=== PATIENT | male | born 1980 | race Caucasian/White ===

== ENCOUNTER 2025-01-23 12:03 | Emergency (ER) | payer BC, SELFPAY ==
--- OUTSIDE RECORDS SUMMARY | 2025-01-19 08:48 | XMS_ITS | Encounter Summary ---
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, unspecified vessel or lesion type (HCC); Vitamin D deficiency Discharge Disposition: Home or Self Care Social History Tobacco Use Types Packs/Day Years Used Date Smoking Tobacco: Every Day Cigarettes 0.5 12 Smokeless Tobacco: Former Alcohol Use Standard Drinks/Week Comments Yes 0 (1 standard drink = 0.6 oz pure alcohol) a couple drinks every couple weeks Interpersonal Safety Domain Source: IP Abuse Scr eening Answer Date Recorded Read-Only, Retired: Physical Abuse Denies 02/20/2023 Read-Only, Retired: Verbal Abuse Denies 02/20/2023 Read-Only, Retired: Emotional abuse Denies 02/20/2023 Read-Only, Retired: Financial Abuse Denies 02/20/2023 Read-Only, Retired: Sexual abuse Denies 02/20/2023 Sex and Gender Information Value Date Recorded Sex Assigned at Not on file Legal Sex Male 2:06 PM EST Gender Identity Not on file Sexual Orientation Not on file documented as of this encounter Medications at Time of Discharge JARDIANCE 25 MG tablet Take 1 tablet by mouth daily 02/17/2022 metFORMIN (GLUCOPHAGE) 1000 MG tablet Take 1 tablet by mouth 2 times daily (with meals) 60 tablet 12/18/2019 omeprazole (PRILOSEC) 10 MG capsule Take 2 capsules by mouth daily documented as of this encounter Plan of Treatment Upcoming Encounters Date Type Department Care Team (Late st Contact Info) Description 01/24/2025 8:30 AM EDT Office Visit [facility] Chronometer Adjuster [address] [place] [address] Jeffery Martinez DO [address] [place] [address] New patient --Abnormal stress--Referred by Dr. Kraus --No prior speech therapist--LM regarding appt & labs 03/14/2025 9:00 AM EDT Office Visit [facility] Part of [address] [address] Christian More MD [address] [place] [phone] Referral from Efra with CP documented as of this encounter Procedures Procedure Name Priority Date/Time Associated Diagnosis Comments TSH REFLEX TO FT4 Routine 01/19/2025 8:5 5 AM EDT Chest pain, unspecified type Other cardiac arrhythmia Abnormal stress test Primary hypertension LIPID PANEL Routine 01/19/2025 8:55 AM EDT Encounter for lipid screening for cardiovascular disease Atherosclerosis 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, unspecified vessel or lesion type (HCC) CBC WITH AUTO DIFFERENTIAL Routine 01/19/2025 8:54 AM EDT Chest pain, unspecified type Other cardiac arrhythmia Abnormal stress test Primary hypertension VITAMIN D 25 HYDROXY Routine 01/19/2025 8:54 AM EDT Vitamin D deficiency MAGNESIUM Routine 01/19/2025 8:54 AM EDT Chest pain, unspecified type Other cardiac arrhythmia Abnormal stress test Primary hypertension documented in this encounter Results * TSH reflex to FT4 (01/19/2025 8:55 AM EDT) TSH 1.66 0.27 - 4.20 uIU/mL 01/19/2025 8:55 AM EDT [facility] Blood BLOOD SPECIMEN / Unknown 01/19/2025 8:55 AM EDT 01/19/2025 8:56 AM EDT Jeffery Martinez DO CHEMISTRY ORDERABLES Final Result [facility] [address] [phone] * (ABNORMAL) Lipid Panel (01/19/2025 8:55 AM EDT) Cholesterol, Total 273(H) 0 - 199 mg/dL 01/19/2025 8:55 AM EDT [facility] Comment: Cholesterol Guidelines: <200 Desirable 200-240 Borderline >240 Undesirable HDL 38(L) >40 mg/dL 01/19/2025 8:55 AM EDT [facility] Comment: HDL Guidelines: <40 Undesirable 40-59 Borderline >59 Desirable LDL Cholesterol 207(H) 0 - 100 mg/dL 01/19/2025 8:55 AM EDT [facility] Comment: LDL Guidelines: <100 Desirable 100-129 Near to/above Desirable 130-159 Borderline >159 Undesirable Direct (measured) LDL and calculated LDL are not interchangeable tests. Chol/HDL Ratio 7.2(H) <5.0 01/19/2025 8:55 AM EDT [facility] Triglycerides 139 <150 mg/dL 01/19/2025 8:55 AM EDT [facility] Comment: Triglyceride Guidelines: <150 Desirable 150-199 Borderline 200-499 High >499 Very high Based on AHA Guidelines for fasting triglyceride, April 2012. VLDL 28 1 - 30 mg/dL 01/19/2025 8:55 AM EDT [facility] Blood BLOOD SPECIMEN / Unknown 01/19/2025 8:55 AM EDT 01/19/2025 8:56 AM EDT Jeffery Martinez DO CHEMISTRY ORDERABLES Final Result [facility] [address] [place] [address], [facility] [phone] [facility] [employer] [facility] [place] [address], [facility] [phone] * (ABNORMAL) CBC with Auto Differential (01/19/2025 8:54 AM EDT) WBC 7.4 3.5 - 11.3 k/uL 01/19/2025 8:54 AM EDT [facility] RBC 5.96(H) 4.21 - 5.77 m/uL 01/19/2025 8:[facility] Hemoglobin 17.3(H) 13.0 - 17.0 g/dL 01/19/2025 8:54 AM [facility] Hematocrit 51.9(H) 40.7 - 50.3 % 01/19/2025 8:54 AM [facility] MCV 87.1 82.6 - 102.9 fL 01/19/2025 8:54 AM [facility] MCH 29.0 25.2 - 33.5 pg 01/19/2025 8:54 [facility] MCHC 33.3 28.4 - 34.8 g/dL 01/19/2025 8:54 AM EDT [facility] RDW 12.9 11.8 - 14.4 % 01/19/2025 8:54 AM [facility] Platelets 205 138 - 453 k/uL 01/19/2025 8:54 AM [facility] MPV 10.1 8.1 - 13.5 fL 01/19/2025 8:54 AM [facility] NRBC Automated 0.0 0.0 per 100 WBC 01/19/2025 8:54 AM EDT [facility] Neutrophils % 53 36 - 65 % 01/19/2025 8:54 AM EDT [facility] Lymphocytes % 37 24 - 43 % 01/19/2025 8:54 AM EDT [facility] Monocytes % 9 3 - 12 % 01/19/2025 8:54 AM EDT [facility] Eosinophils % 1 1 - 4 % 01/19/2025 8:54 AM EDT [facility] Basophils % 0 0 - 2 % 01/19/2025 8:54 AM EDT [facility] Immature Granulocytes % 0 0 % 01/19/2025 8:54 AM EDT [facility] Neutrophils Absolute 3.93 1.50 - 8.10 k/uL 01/19/2025 8:54 AM EDT [facility] Lymphocytes Absolute 2.74 1.10 - 3.70 k/uL 01/19/2025 8:54 AM EDT [facility] Monocytes Absolute 0.65 0.10 - 1.20 k/uL 01/19/2025 8:54 AM EDT [facility] Eosinophils Absolute 0.04 0.00 - 0.44 k/uL 01/19/2025 8:54 AM EDT [facility] Basophils Absolute <0.03 0.00 - 0.20 k/uL 01/19/2025 8:54 [facility] Immature Granulocytes Absolute 0.03 0.00 - 0.30 k/uL 01/19/2025 8:54 AM T [facility] Blood BLOOD SPECIMEN / Unknown 01/19/2025 8:54 AM EDT 01/19/2025 8:55 AM EDT Jeffery Martinez DO HEMATOLOGY ORDERABLES Gina myers Result [facility] [address] [phone] * (ABNORMAL) Vitamin D 25 Hydroxy (01/19/2025 8:54 AM EDT) Vit D, 25-Hydroxy 29.8(L) 30.0 - 100.0 ng/mL 01/19/2025 8:54 AM EDT [facility] Comment: Reference Range: Vitamin D status Range Deficiency <20 ng/mL Mild Deficiency 20-30 ng/mL Sufficiency 30-100 ng/mL Toxicity >100 ng/mL Blood BLOOD SPECIMEN / Unknown 01/19/2025 8:54 AM EDT 01/19/2025 8:55 AM EDT Jeffery Martinez CHEMISTRY ORDERABLES Final Result [facility] [address] [place] [address] [facility] [employer] [address] [place] [address] * Magnesium (01/19/2025 8:54 AM EDT) Pathologist [facility] Magnesium 2.0 1.6 - 2.6 mg/dL 01/19/2025 8:54 AM EDT [facility] Blood BLOOD SPECIMEN / Unknown 01/19/2025 8:54 AM EDT 01/19/2025 8:55 AM EDT Jeffery Martinez DO CHEMISTRY ORDERABLES Final Result [facility] [address] [place] [address] documented in this encounter Visit Diagnoses Diagnosis Chest pain, unspecified type Other cardiac arrhythmia Abnormal stress test Other nonspecific abnormal cardiovascular system function study Primary hypertension Unspecified essential hypertension Encounter for lipid screening for cardiovascular disease Atherosclerosis 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, unspecified vessel or lesion type (HCC) Vitamin D deficiency Unspecified vitamin D deficiency documented in this encounter Care Teams Vp Packaging Relationship Specialty Start Date End Date Warner Kraus MD PCP - General 10/20/14 documented as of this encounter
[2025-01-23] VITALS (50 sets, daily range): BP systolic 119–150; BP diastolic 74–103; PULSE 88–129; TEMP 37.1; O2SAT 91–99; BMI 40.3
--- NOTE | 2025-01-23 12:19 | ECG_ITS ---
The [facility] Test Date: 2025-01-23 Pat Name: VAISHALI VEE Department: Room: - Gender: Male Crane Service Technician: : 1980 Requested By: [id number] Order Number: [id number] Reading MD: YARELI JACK M.D. Measurements Intervals [place] Rate: 113 P: 58 AL: 150 QRS: 57 QRSD: 68 T: -51 QT: 302 QTc: 369 Interpretive Statements 1120 Sinus tachycardia [address] depression 4664 Twave abnormality, possible inferior ischemia 9150 abnormal ECG No previous ECG available for comparison Electronically Signed On 01-25-2025 6:56:34 EDT by YARELI JACK M.D.
--- NOTE | 2025-01-23 12:19 | XR_ITS ---
The [address] [address] Patient Name: VAISHALI VEE MRN: [id number] date: 1980 Sex: M Assigned Patient Location: ED.MAIN Current Patient Location: ED.MAIN Accession/Order Number: [id number] Exam Date: 01/23/2025 12:41 Report Date: 01/23/2025 12:41 At the request of: CAITY CUEVA MD Procedure: XR chest 1V Single view chest: CLINICAL HISTORY: chest pain COMPARISON: None FINDINGS: The heart is normal in size. The lungs are clear. The pulmonary vasculature is normal. Mediastinum and hilar regions are unremarkable. No pleural effusions are seen. Visualized bones are intact. XR/XR chest 1V IMPRESSION: NEGATIVE CHEST. Impression dictated by: Hamzah Ivan Jr., D.O. 01/23/2025 12:41 PM Dictation Location: [place] [address] Electronically authenticated by: [id number] Y Date: 01/23/2025 12:41
--- OUTSIDE RECORDS SUMMARY | 2025-01-23 12:25 | XMS_ITS | Encounter Summary ---
Author Organization [facility] Address [address] [facility], [address] [place] [address] Care Team Providers Care Yarn Rewinder Name Role Phone Warner Kraus MD Primary Care Provider [phone] Encounter Details Date Type Department Care Team (Late st Contact Info) Description 01/10/2025 Orders Only [facility] Spanish Teacher [address] [place] [address] Jeffery Martinez DO [address] [place] [address] Chest pain, unspecified type (Primary Dx); Other cardiac arrhythmia; Encounter for lipid screening for cardiovascular disease; Vitamin D deficiency; Abnormal stress test; Primary hypertension; Atherosclerosis of coronary 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 Kraus --No prior admitting counselor--LM regarding appt & labs 03/14/2025 9:00 AM EDT Office Visit [facility] Part of [address] [phone] Christian More MD [address] [place] [phone] Referral from Efra with CP documented as of this encounter Results * TSH reflex to FT4 (01/19/2025 8:55 AM EDT) Pathologist [facility] TSH 1.66 0.27 - 4.20 uIU/mL 01/19/2025 8:55 AM EDT [facility] Blood BLOOD SPECIMEN / Unknown 01/19/2025 8:55 AM EDT 01/19/2025 8:56 AM EDT Jeffery Martinez DO CHEMISTRY ORDERABLES Final Result [facility] [address] [place] [address] * (ABNORMAL) Lipid Panel (01/19/2025 8:55 AM EDT) Cholesterol, Total 273(H) 0 - 199 mg/dL 01/19/2025 8:55 AM EDT [email or web address] Comment: Cholesterol Guidelines: <200 Desirable 200-240 Borderline >240 Undesirable HDL 38(L) >40 mg/dL 01/19/2025 8:55 AM EDT [facility] Comment: HDL Guidelines: <40 Undesirable 40-59 Borderline >59 Desirable LDL Cholesterol 207(H) 0 - 100 mg/dL 01/19/2025 8:55 AM EDT [facility] Comment: LDL Guidelines: <100 Desirable 100-129 Near to/above Desirable 130-159 Borderline >159 Undesirable Direct (measured) LDL and calculated LDL are not interchangeable tests. Chol/HDL Ratio 7.2(H) <5.0 01/19/2025 8:55 AM EDT [facility] Triglycerides 139 <150 mg/dL 01/19/2025 8:55 AM EDT [facility] Comment: Triglyceride Guidelines: <150 Desirable 150-199 Borderline 200-499 High >499 Very high Based on AHA Guidelines for fasting triglyceride, April 2012. VLDL 28 1 - 30 mg/dL 01/19/2025 8:55 AM EDT [facility] Blood BLOOD SPECIMEN / Unknown 01/19/2025 8:55 AM EDT 01/19/2025 8:56 AM EDT Jeffery Martinez DO CHEMISTRY ORDERABLES Final Result Performing Organization Address City/[facility]/ZIP Co de Phone Number [facility] [address] [place] [address] [phone] * Magnesium (01/19/2025 8:54 AM EDT) Magnesium 2.0 1.6 - 2.6 mg/dL 01/19/2025 8:54 AM EDT [facility] Blood BLOOD SPECIMEN / Unknown 01/19/2025 8:54 AM EDT 01/19/2025 8:55 AM EDT Jeffery Martinez DO CHEMISTRY ORDERABLES Final Result Performing Organization Address City/[facility]/ZIP Co de Phone Number [facility] [address] [place] [address], [facility] [phone] * (ABNORMAL) Vitamin D 25 Hydroxy (01/19/2025 8:54 AM EDT) Pathologist [facility] Vit D, 25-Hydroxy 29.8(L) 30.0 - 100.0 ng/mL 01/19/2025 8:54 AM EDT [facility] Comment: Reference Range: Vitamin D status Range Deficiency <20 ng/mL Mild Deficiency 20-30 ng/mL Sufficiency 30-100 ng/mL Toxicity >100 ng/mL Blood BLOOD SPECIMEN / Unknown 01/19/2025 8:54 AM EDT 01/19/2025 8:55 AM EDT Jeffery Martinez DO CHEMISTRY ORDERABLES Final Result [facility] [address] [place], [place] [address] [phone] [phone] * (ABNORMAL) CBC with Auto Differential (01/19/2025 8:54 AM EDT) Pathologist [facility] WBC 7.4 3.5 - 11.3 k/uL 01/19/2025 8:54 AM EDT [facility] RBC 5.96(H) 4.21 - 5.77 m/uL 01/19/2025 8:54 AM EDT [facility] Hemoglobin 17.3(H) 13.0 - 17.0 g/dL 01/19/2025 8:54 AM EDT [facility] Hematocrit 51.9(H) 40.7 - 50.3 % 01/19/2025 8:54 AM EDT [facility] MCV 87.1 82.6 - 102.9 fL 01/19/2025 8:54 AM EDT [facility] MCH 29.0 25.2 - 33.5 pg 01/19/2025 8:54 AM EDT [facility] MCHC 33.3 28.4 - 34.8 g/dL 01/19/2025 8:54 AM EDT [facility] RDW 12.9 11.8 - 14.4 % 01/19/2025 8:54 AM [facility] Platelets 205 138 - 453 k/uL 01/19/2025 8:54 AM [facility] MPV 10.1 8.1 - 13.5 fL 01/19/2025 8:54 AM [facility] NRBC Automated 0.0 0.0 per 100 WBC 01/19/2025 8:54 AM [facility] Neutrophils % 53 36 - 65 % 01/19/2025 8:54 AM [facility] Lymphocytes % 37 24 - 43 % 01/19/2025 8:54 AM [facility] Monocytes % 9 3 - 12 % 01/19/2025 8:54 AM [facility] Eosinophils % 1 1 - 4 % 01/19/2025 8:54 AM [facility] Basophils % 0 0 - 2 % 01/19/2025 8:54 AM [facility] Immature Granulocytes % 0 0 % 01/19/2025 8:54 AM [facility] Neutrophils Absolute 3.93 1.50 - 8.10 k/uL 01/19/2025 8:54 AM [facility] Lymphocytes Absolute 2.74 1.10 - 3.70 k/uL 01/19/2025 8:54 AM [facility] Monocytes Absolute 0.65 0.10 - 1.20 k/uL 01/19/2025 8:54 AM [facility] Eosinophils Absolute 0.04 0.00 - 0.44 k/uL 01/19/2025 8:54 AM [facility] Basophils Absolute <0.03 0.00 - 0.20 k/uL 01/19/2025 8:54 AM [facility] Immature Granulocytes Absolute 0.03 0.00 - 0.30 k/uL 01/19/2025 8:54 AM [facility] Blood BLOOD SPECIMEN / Unknown 01/19/2025 8:54 AM EDT 01/19/2025 8:55 AM EDT us Jeffery Martinez DO HEMATOLOGY ORDERABLES Gina myers Result [facility] [address] [phone] documented in this encounter Visit Diagnoses Diagnosis Chest pain, unspecified type- Primary Other cardiac arrhythmia Encounter for lipid screening for cardiovascular disease Vitamin D deficiency Unspecified vitamin D deficiency Abnormal stress test Other nonspecific abnormal cardiovascular system function study Primary hypertension Unspecified essential hypertension Atherosclerosis of coronary artery of [place] heart with unstable angina pectoris, unspecified vessel or lesion type (HCC) documented in this encounter Care Teams Yarn Rewinder Relationship Specialty Start Date End Date Warner Kraus MD PCP - General 10/20/14 documented as of this encounter
--- OUTSIDE RECORDS SUMMARY | 2025-01-23 12:25 | XMS_ITS | Clinical Summary ---
Author Organization [employer] Address [id number] [address] [place] [address] Care Team Providers Care Car Repairer Helper Name Role Phone Warner Kraus MD Primary Care Provider [phone] Encounters Date Type Department Care Team Description 11/09/2024 Travel from Last 3 Months Social History Tobacco Use Types Packs/Day Years Used Date Smoking Tobacco: Never Assessed Childcare Answer Date Recorded Childcare Unknown 05/16/2020 Employment Answer Date Recorded Employment Unknown 05/16/2020 Purpose - Life Answer Date Recorded Purpose and direction in life Unknown Sex and Gender Information Value Date Recorded Sex Assigned at Not on file Legal Sex Male 10:31 PM EDT Gender Identity Not on file Sexual Orientation Not on file Plan of Treatment Health Maintenance Due Date Last Done Comments Depression Screening 1991 Tobacco Screening 1991 Adult BMI Screening 1997 DTaP,Tdap and Td Vaccines (1 - Tdap) 1998 Influenza Vaccine 03/06/2025 Medical Devices Not on file Procedures Procedure Name Priority Date/Time Associated Diagnosis Comments COMPREHENSIVE METABOLIC PANEL Routine 11/09/2024 8:15 AM EDT Chest pain, unspecified C-REACTIVE PROTEIN Routine 11/09/2024 8: 15 AM EDT Chest pain, unspecified TROPONIN I, HIGH SENSITIVITY Routine 11/09/2024 8:15 AM EDT Chest pain, unspecified from Last 3 Months Results * Troponin I, High Sensitivity (11/09/2024 8:15 AM EDT) [facility] TROPONIN I, HIGH SENSITIVITY 4 <21 ng/L 11/09/2024 5:12 PM EDT [facility] Blood Venous blood / Unknown Venipuncture / Unknown 11/09/2024 8:15 AM EDT 11/09/2024 8:15 AM EDT [facility] B[facility]AB[facility] Final R esult [facility] [address] [place] [address], [place] [phone] * C-reactive protein (11/09/2024 8:15 AM EDT) [facility] C REACTIVE PROTEIN 0.5 <=0.7 mg/dL 11/09/2024 5:13 PM EDT [facility] Blood Venous blood / Unknown Venipuncture / Unknown 11/09/2024 8:15 AM EDT 11/09/2024 8:15 AM EDT [facility] BLOOD ORDERABLES Final R esult [facility] [address] [place] [address], [place] [phone] * (ABNORMAL) Comprehensive metabolic panel (11/09/2024 8:15 AM EDT) [facility] SODIUM 141 134 - 146 mmol/L 11/09/2024 5:13 PM EDT [facility] POTASSIUM 3.8 3.5 - 5.0 mmol/L 11/09/2024 5:13 PM EDT [facility] CHLORIDE 102 98 - 109 mmol/L 11/09/2024 5:13 PM EDT [facility] CARBON DIOXIDE 28 22 - 32 mmol/L 11/09/2024 5:13 PM EDT [facility] ANION GAP 11 5 - 15 mmol/L 11/09/2024 5:13 PM EDT [facility] BLOOD UREA NITROGEN 18 5 - 23 mg/dL 11/09/2024 5:13 PM EDT [facility] CREATININE 0.97 0.60 - 1.30 mg/dL 11/09/2024 5:13 PM EDT [facility] Comment:METHOD TRACEABLE TO IDPR STANDARD GLUCOSE 130(H) 65 - 99 mg/dL 11/09/2024 5:13 PM EDT [facility] CALCIUM 9.2 8.5 - 10.5 mg/dL 11/09/2024 5:13 PM EDT [facility] TOTAL PROTEIN 7.0 6.0 - 8.0 g/dL 11/09/2024 5:13 PM EDT [facility] ALBUMIN 4.5 3.2 - 5.3 g/dL 11/09/2024 5:13 PM EDT [facility] ALKALINE PHOSPHATASE 61 39 - 130 U/L 11/09/2024 5:13 PM EDT [facility] AST 18 <=41 U/L 11/09/2024 5:13 PM EDT [facility] ALT 25 <=40 U/L 11/09/2024 5:13 PM EDT [facility] BILIRUBIN,TOTAL 0.4 0.3 - 1.2 mg/dL 11/09/2024 5:13 PM EDT [facility] EGFR Non-Race Dependent >90 >=60 ml/min/1.7 3sq.m 11/09/2024 5:13 PM EDT [facility] Comment: Reported eGFR is based on the CKD-EPI 2020 equation that does not use a race coefficient. Blood Venous blood / Unknown Venipuncture / Unknown 11/09/2024 8:15 AM EDT 11/09/2024 8:15 AM EDT us Anshul Magdaleno EMPLOYEE HEALTH NURSE-POSTAL SERVICE MAIL PROCESSOR LAB BLOOD ORDERABLES Final R esult [facility] [address] [place] [address], [place] [phone] from Last 3 Months Insurance [employer] Care Teams Car Repairer Helper Relationship Specialty Start Date End Date Warner Kraus MD [address] [place] [place] [id number] PCP - General Family Medicine 05/19/24
--- OUTSIDE RECORDS SUMMARY | 2025-01-23 12:25 | XMS_ITS | Encounter Summary ---
Author Organization [facility] Address [address] [facility], [address] [place] [address] Care Team Providers Care Regulatory Affairs Portfolio Leader Name Role Phone Warner Kraus MD Primary Care Provider [phone] Reason for Visit * Reason Comments Medication Refill Encounter Details Date Type Department Care Team (Late st Contact Info) Description 01/10/2020 Refill [facility] [address] [place] [address] Won Dill MD [address] [place] [address] Medication Refill Social History Tobacco Use Types Packs/Day Years Used Date Smoking Tobacco: Former Cigarettes 0.8 12 Smokeless Tobacco: Former Alcohol Use Standard Drinks/Week Comments Yes 0 (1 standard drink = 0.6 oz pure alcohol) a couple drinks every couple weeks Sex and Gender Information Value Date Recorded Sex Assigned at Not on file Legal Sex Male 2:06 PM EST Gender Identity Not on file Sexual Orientation Not on file COVID-19 Exposure Response Date Recorded In the last month, have you been in contact with someone who was confirmed or suspected to have Coronavirus / COVID-19? No / Unsure 12/17/2019 6:48 AM EDT documented as of this encounter Plan of Treatment Upcoming Encounters Date Type Department Care Team (Late st Contact Info) Description 01/24/2025 8:30 AM EDT Office Visit [facility] Manager Risk Management [address] [place] [phone] Jeffery Martinez DO [address] [place] [address] New patient --Abnormal stress--Referred by Dr. Kraus --No prior bobbin coil winder--LM regarding appt & labs 03/14/2025 9:00 AM EDT Office Visit [facility] Part of [address] [phone] Christian More MD [address] [place] [phone] Referral from Efra with CP documented as of this encounter Visit Diagnoses Not on filedocumented in this encounter Care Teams Regulatory Affairs Portfolio Leader Relationship Specialty Start Date End Date Warner Kraus MD PCP - General 10/20/14 documented as of this encounter
--- OUTSIDE RECORDS SUMMARY | 2025-01-23 12:25 | XMS_ITS | Clinical Summary ---
Author Organization [facility] Address [address], [address] [place] [address] Care Team Providers Care Field Examiner Name Role Phone Warner Kraus MD Primary Care Provider [phone] Allergies Active Allergy Reactions Criticality Noted Date Comments Fluocinolone 04/21/2013 Burning at IV site Medications omeprazole (PRILOSEC) 10 MG capsule Take 2 capsules by mouth daily Active metFORMIN (GLUCOPHAGE) 1000 MG tablet Take 1 tablet by mouth 2 times daily (with meals) 60 tablet 0 Active Additional Information Patient taking differently:1,000 mg OralDAILY WITH BREAKFAST, Reported on 02/12/2023 JARDIANCE 25 MG tablet Take 1 tablet by mouth daily 2 Active Active Problems Problem Noted Date Diagnosed Date Diabetes mellitus, type 2 12/18/2019 Morbid obesity 12/18/2019 Intractable nausea and vomiting 12/17/2019 Encounters Date Type Department Care Team Description 01/19/2025 8:48 AM EDT - 01/19/2025 11:59 PM EDT Hospital Encounter [facility] [address] [place] [address] Chest pain, unspecified type; Other cardiac arrhythmia; Abnormal stress test; Primary hypertension; Encounter for lipid screening for cardiovascular disease; Atherosclerosis of coronary artery of [place] heart with unstable angina pectoris, unspecified vessel or lesion type (HCC); Vitamin D deficiency Discharge Disposition: Home or Self Care 01/10/2025 Orders Only [facility] Granulator [place] [phone] Jeffery Martinez DO Chest pain, unspecified type (Primary Dx); Other cardiac arrhythmia; Encounter for lipid screening for cardiovascular disease; Vitamin D deficiency; Abnormal stress test; Primary hypertension; Atherosclerosis of coronary artery of [place] heart with unstable angina pectoris, unspecified vessel or lesion type ([facility]) 12/22/2024 9:17 AM EDT - 12/24/2024 11:59 PM EDT Hospital Encounter [facility] [address] [place] [id number] Discharge Disposition: Home or Self Care 12/22/2024 9:04 AM EDT - 12/24/2024 11:59 PM EDT Hospital Encounter [facility] Non-Invasive Cardiology [address] [place] [address] Discharge Disposition: Home or Self Care 12/21/2024 2:02 PM EDT - 12/23/2024 11:59 PM EDT Hospital Encounter [address] [address] Discharge Disposition: Home or Self Care 12/21/2024 1:30 PM EDT - 12/23/2024 11:59 PM EDT Hospital Encounter [address] [address] Chest pain, unspecified type Discharge Disposition: Home or Self Care 12/21/2024 1:02 PM EDT - 12/23/2024 11:59 PM EDT Hospital Encounter [facility] Non-Invasive Cardiology [address] [place] [address] Mitral valve disorder Discharge Disposition: Home or Self Care 11/30/2024 Transcribe Orders [facility] [address] [place], [place] [id number] Anshul Magdaleno, BODY DESIGNER - FACILITIES MAINTENANCE ASSISTANT Mitral valve disorder (Primary Dx); Chest pain, unspecified type 11/23/[address] [facility] Part of [address] [phone] Romana Vazquez MA from Last 3 Months Social History Tobacco Use Types Packs/Day Years Used Date Smoking Tobacco: Every Day Cigarettes 0.5 12 Smokeless Tobacco: Former Tobacco Cessation:Ready to Q uit: Not Asked; Counseling Given: Not Answered Alcohol Use Standard Drinks/Week Comments Yes 0 [...] on file Sexual Orientation Not on file Last Filed Vital Signs Vital Sign Reading Time Taken Comments Blood Pressure 129/86 12/21/2024 2:29 PM EDT Pulse 86 02/20/2023 2:15 PM EDT Temperature 36.4 C (97.5 F) 02/20/2023 1:04 PM EDT Respiratory Rate 12 02/20/2023 2:15 PM EDT Oxygen Saturation 95% 02/20/2023 2:15 PM EDT Inhaled Oxygen Concentration - - Weight 117.9 kg (259 lb 14.8 oz) 12/21/2024 2:29 PM EDT Height 172.7 cm (5' 7.99 ) 12/21/2024 2:29 PM ED T Body Mass Index 39.53 12/21/2024 2:29 PM EDT Plan of Treatment Upcoming Encounters Date Type Department Care Team (Late st Contact Info) Description 01/24/2025 8:30 AM EDT Office Visit [facility] Granulator Tender [address] [place] [phone] Jeffery Martinez DO [address] [place] [address] New patient --Abnormal stress--Referred by Dr. Kraus --No prior dairy tester--LM regarding appt & labs 03/14/2025 9:00 AM EDT Office Visit [facility] CARD[facility] Part of [address] [phone] Christian More MD [address] [place] [phone] Referral from [facility] with Health Maintenance Due Date Last Done Comments Diabetic foot exam 1989 Lipids 1989 01/19/2025 Depression Screen 1991 HIV screen 1994 Diabetic Alb to Cr ratio (uACR) test 1997 Diabetic retinal exam 1997 Hepatitis C screen 1997 DTaP/Tdap/Td vaccine (1 - Tdap) 1998 Hepatitis B vaccine (1 of 3 - 19+ 3-dose series) 1998 Pneumococcal 0-49 years Vaccine (1 of 2 - PCV) 1998 A1C test (Diabetic or Prediabetic) 12/16/2020 12/17/2019 GFR test (Diabetes, CKD 3-4, OR last GFR 15-59) 02/13/2024 02/12/2023, 12/18/2019, 12/17/2019 COVID-19 Vaccine (3 - 2023-2 5 season) 2024 04/20/2021, 03/16/2021 Colonoscopy 2024 Colorectal Cancer Screen 2024 FIT/FOBT: Average risk 2024 Fecal-DNA (Cologuard): [place] ge risk 2024 Sigmoidoscopy/CT colonography 2024 Flu vaccine (#1) 02/03/2025 05/24/2009 HPV vaccine Aged Out No longer eligi ble based on patient's age to complete this topic Hepatitis A vaccine Aged Out No longe r eligible based on patient's age to complete this topic Hib vaccine Aged Out No longer eligi ble based on patient's age to complete this topic Meningococcal (ACWY) vaccine Aged Out No longer eligible based on patient's age to complete this topic Meningococcal B vaccine Aged Out No l onger eligible based on patient's age to complete this topic Polio vaccine Aged Out No longer elig ible based on patient's age to complete this topic Medical Devices Implanted Type Area Ore Crusher Device Identifier Shelf Expiration Date Model / Serial / Lot Kit Impl Dst Biceps Bttn Insrt W/ No2 Fiberloop Sut - [id number] Implanted:Qty: 1 on 02/20/2023 by Mayank Barba MD at [facility] Right: Arm [employer] 12/03/2024 [id number] / / [id number] Procedures Procedure Name Priority Date/Time Associated Diagnosis Comments TSH REFLEX TO FT4 Routine 01/19/2025 8:5 5 AM EDT Chest pain, unspecified type Other cardiac arrhythmia Abnormal stress test Primary hypertension LIPID PANEL Routine 01/19/2025 8:55 AM EDT Encounter for lipid screening for cardiovascular disease Atherosclerosis of coronary artery of [place] heart with unstable angina pectoris, unspecified vessel or lesion type (HCC) CBC WITH AUTO DIFFERENTIAL Routine 01/19/2025 8:54 AM EDT Chest pain, unspecified type Other cardiac arrhythmia Abnormal stress test Primary hypertension VITAMIN D 25 HYDROXY Routine 01/19/2025 8:54 AM EDT Vitamin D deficiency MAGNESIUM Routine 01/19/2025 8:54 AM EDT Chest pain, unspecified type Other cardiac arrhythmia Abnormal stress test Primary hypertension NM LEXISCAN STRESS TEST W/ MYOCARDIAL PERFUSION Routine 12/22/2024 11:00 AM EDT Chest pain, unspecified type ECHO (TTE) COMPLETE Routine 12/21/2024 2 :30 PM EDT Mitral valve disorder BASIC METABOLIC PANEL Routine 02/12/2023 7:23 AM EDT HEMOGLOBIN A1C Routine 12/17/2019 1:30 AM EDT from Last 3 Months or Most Recently Relevant to Health Maintenance Results * TSH reflex to FT4 (01/19/2025 8:55 AM EDT) TSH 1.66 0.27 - 4.20 uIU/mL 01/19/2025 8:55 AM EDT [facility] Blood BLOOD SPECIMEN / Unknown 01/19/2025 8:55 AM EDT 01/19/2025 8:56 AM EDT Jeffery Martinez DO CHEMISTRY ORDERABLES Final Result [facility] [address] [place] [address], [facility] [phone] * (ABNORMAL) Lipid Panel (01/19/2025 8:55 AM EDT) Cholesterol, Total 273(H) 0 - 199 mg/dL 01/19/2025 8:55 AM EDT [facility] Comment: Cholesterol Guidelines: <200 Desirable 200-240 Borderline >240 Undesirable HDL 38(L) >40 mg/dL 01/19/2025 8:55 AM EDT [facility] Comment: HDL Guidelines: <40 Undesirable 40-59 Borderline >59 Desirable LDL Cholesterol 207(H) 0 - 100 mg/dL 01/19/2025 8:55 AM EDT [facility] Comment: LDL Guidelines: <100 Desirable 100-129 Near to/above Desirable 130-159 Borderline >159 Undesirable Direct (measured) LDL and calculated LDL are not interchangeable tests. Chol/HDL Ratio 7.2(H) <5.0 01/19/2025 8:55 AM EDT [facility] Triglycerides 139 <150 mg/dL 01/19/2025 8:55 AM EDT [facility] Comment: Triglyceride Guidelines: <150 Desirable 150-199 Borderline 200-499 High >499 Very high Based on AHA Guidelines for fasting triglyceride, April 2012. VLDL 28 1 - 30 mg/dL 01/19/2025 8:55 AM EDT [facility] Blood BLOOD SPECIMEN / Unknown 01/19/2025 8:55 AM EDT 01/19/2025 8:56 AM EDT Jeffery Martinez DO CHEMISTRY ORDERABLES Final Result Performing Organization Address [facility]/ZIP Co de Phone Number [facility] [address] [place] [address], [facility] [phone] [facility] [address] [place], [place] [phone] [place] [address] * (ABNORMAL) CBC with Auto Differential (01/19/2025 8:54 AM EDT) [facility] Signature WBC 7.4 3.5 - 11.3 k/uL 01/19/2025 8:54 AM [facility] RBC 5.96(H) 4.21 - 5.77 m/uL 01/19/2025 8:54 AM [facility] Hemoglobin 17.3(H) 13.0 - 17.0 g/dL 01/19/2025 8:54 AM [facility] Hematocrit 51.9(H) 40.7 - 50.3 % 01/19/2025 8:54 AM [facility] MCV 87.1 82.6 - 102.9 fL 01/19/2025 8:54 AM [facility] MCH 29.0 25.2 - 33.5 pg 01/19/2025 8:54 AM [facility] MCHC 33.3 28.4 - 34.8 g/dL 01/19/2025 8:54 AM [facility] RDW 12.9 11.8 - 14.4 % 01/19/2025 8:54 AM [facility] Platelets 205 138 - 453 k/uL 01/19/2025 8:54 AM [facility] MPV 10.1 8.1 - 13.5 fL 01/19/2025 8:54 AM [facility] NRBC Automated 0.0 0.0 per 100 WBC 01/19/2025 8:54 AM [facility] Neutrophils % 53 36 - 65 % 01/19/2025 8:54 AM [facility] Lymphocytes % 37 24 - 43 % 01/19/2025 8:54 AM [facility] Monocytes % 9 3 - 12 % 01/19/2025 8:54 AM [facility] Eosinophils % 1 1 - 4 % 01/19/2025 8:54 AM [facility] Basophils % 0 0 - 2 % 01/19/2025 8:54 AM EDT [facility] Immature Granulocytes % 0 0 % 01/19/2025 8:54 AM EDT [facility] Neutrophils Absolute 3.93 1.50 - 8.10 k/uL 01/19/2025 8:54 AM EDT [facility] Lymphocytes Absolute 2.74 1.10 - 3.70 k/uL 01/19/2025 8:54 AM EDT [facility] Monocytes Absolute 0.65 0.10 - 1.20 k/uL 01/19/2025 8:54 AM EDT [facility] Eosinophils Absolute 0.04 0.00 - 0.44 k/uL 01/19/2025 8:54 AM EDT [facility] Basophils Absolute <0.03 0.00 - 0.20 k/uL 01/19/2025 8:54 AM EDT [facility] Immature Granulocytes Absolute 0.03 0.00 - 0.30 k/uL 01/19/2025 8:54 AM EDT [facility] Blood BLOOD SPECIMEN / Unknown 01/19/2025 8:54 AM EDT 01/19/2025 8:55 AM EDT Jeffery Martinez DO HEMATOLOGY ORDERABLES Gina l Result [facility] [address] [place] [address] * (ABNORMAL) Vitamin D 25 Hydroxy (01/19/2025 8:54 AM EDT) Vit D, 25-Hydroxy 29.8(L) 30.0 - 100.0 ng/mL 01/19/2025 8:54 AM EDT [facility] Comment: Reference Range: Vitamin D status Range Deficiency <20 ng/mL Mild Deficiency 20-30 ng/mL Sufficiency 30-100 ng/mL Toxicity >100 ng/mL Blood BLOOD SPECIMEN / Unknown 01/19/2025 8:54 AM EDT 01/19/2025 8:55 AM EDT Jeffery Martinez DO CHEMISTRY ORDERABLES Final Result [facility] [address] [phone] [facility] [address] [place], [place] [id number] [phone] * Magnesium (01/19/2025 8:54 AM EDT) Pathologist [facility] Magnesium 2.0 1.6 - 2.6 mg/dL 01/19/2025 8:54 AM EDT [facility] Blood BLOOD SPECIMEN / Unknown 01/19/2025 8:54 AM EDT 01/19/2025 8:55 AM EDT us Jeffery Martinez DO CHEMISTRY ORDERABLES Final Result Performing Organization Address [facility]/ZIP Co de Phone Number [facility] [address] [phone] * NM LEXISCAN STRESS TEST W/ MYOCARDIAL PERFUSION (12/22/2024 11:00 AM EDT) Pathologist [facility] Stress Target HR 175 bpm [facility] CV [facility] STRESS Baseline Systolic BP 146 mmHg [facility] CV [facility]ACS STRESS Baseline Diastolic BP 80 mmHg [facility] CV [facility] STRESS Stress Systolic BP 146 mmHg [facility] CV RPACS STRESS Stress Diastolic BP 80 mmHg [facility] CV [facility]ACS STRESS Baseline HR 79 BPM [facility] CV [facility] STRESS Stress Peak HR 141 BPM [facility] STRESS Stress Estimated Workload 1.3 METS [facility] STRESS Stress Rate Pressure Product 20,586 BPM*mmHg [facility] CV [facility] STRESS Stress Percent HR Achieved 81 % [facility] STRESS TID 1.43 [facility] CV RP ACS STRESS Nuc Stress EF 61 % [facility] C V RPACS STRESS Anatomical Region Laterality Modality Cardiac Diagnost ic 12/22/2024 9:17 AM EDT Narrative 12/22/2024 7:56 PM EDT Stress Combined Conclusion: The study is positive for myocardial ischemia. Findings suggest a moderate risk of cardiac events. Stress Function: Left ventricular function post-stress is normal. Post-stress ejection fraction is 61%. The stress end diastolic cavity size is normal. Perfusion Comments: Prone images were obtained. Prone imaging confirms a true perfusion defect instead of soft tissue attenuation. LV perfusion is abnormal. There is evidence of inducible ischemia. Perfusion Defect: There is a moderate severity left ventricular stress perfusion defect that is medium in size present in the inferolateral and anterolateral segment(s). This defect was visualized during the stress phase of imaging. The defect appears to be ischemia. The possibility of artifact cannot be excluded. Perfusion Conclusion: There is evidence of transient ischemic dilation (TID). TID was appreciated visually and quantitatively. TID ratio is 1.43. Stress Test: A pharmacological stress test was performed using regadenoson (Lexiscan). Low level exercise was used during the pharmacological stress test. The patient reported diaphoresis, dyspnea and chest tightness during the stress test. The patient reached the end of the protocol. Blood pressure demonstrated a normal response and heart rate demonstrated a normal response to stress. Resting ECG: The ECG shows sinus rhythm. down sloping ST depression in the inferolateral leads (II, III, aVF, V5 and V6) was noted. Stress ECG: The stress ECG was positive for ischemia. Abnormal myocardial perfusion study, there is inferolateral and anterolateral defect most consistent with ischemia but cannot rule out an artifact. Gated SPECT showed normal left ventricular cavity size and wall motion. Calculated ejection fraction 61%. There is evidence of stress-induced transient ischemic dilatation of the left ventricle of 1.43, transient ischemic dilatation of the left ventricle is associated with uncontrolled hypertension, severe three-vessel disease or severe left main coronary artery disease. Overall, these results are most consistent with a intermediate to high risk for cardiac events. Additional testing including cardiac catheterization may be indicated. Resting ECG The ECG shows sinus rhythm. down sloping ST depression in the inferolateral leads (II, III, aVF, V5 and V6) was noted. Stress Findings A pharmacological stress test was performed using regadenoson (Lexiscan). Low level exercise was used during the pharmacological stress test. The patient reported diaphoresis, dyspnea and chest tightness during the stress test. The patient reached the end of the protocol. Blood pressure demonstrated a normal response and heart rate demonstrated a normal response to stress. Stress ECG There were no arrhythmias during stress. There were no noted arrhythmias during recovery. The stress ECG was positive for ischemia. Nuclear Study Quality Nuclear Cardiac SPECT rest then gated stress with tomographic imaging/tomography utilized for the myocardial perfusion procedure. Lexiscan was used as the stressing method and agent. (Lexiscan given via a 10 - 20 sec injection). Two day myocardial perfusion study (12/21/2024 and 12/22/2024). This Single Photon Emission Computer Tomography (SPECT) study utilized tomographic imaging/tomography for the tomographic myocardial perfusion imaging performed during this study. Perfusion Comments Prone images were obtained. Prone imaging confirms a true perfusion defect instead of soft tissue attenuation. LV perfusion is abnormal. There is evidence of inducible ischemia. Perfusion Defect There is a moderate severity left ventricular stress perfusion defect that is medium in size present in the inferolateral and anterolateral segment(s). This defect was visualized during the stress phase of imaging. The defect appears to be ischemia. The possibility of artifact cannot be excluded. Perfusion Defect Conclusion There is evidence of transient ischemic dilation (TID). TID was appreciated visually and quantitatively. TID ratio is 1.43. Stress Function Comments Left ventricular function post-stress is normal. Post-stress ejection fraction is 61%. The stress end diastolic cavity size is normal. Stress Combined Conclusion The study is positive for myocardial ischemia. Findings suggest a moderate risk of cardiac events. us Anshul Magdaleno BODY DESIGNER - FACILITIES MAINTENANCE ASSISTANT CV STRESS ORDERABLES Gina myers Result * (ABNORMAL) ECHO (TTE) COMPLETE (12/21/2024 2:30 PM EDT) Body Surface Area 2.38 m2 [facility] CPACS EF BP 60 55 - 100 % [facility] Fractional Shortening 2D 28 28 - 44 % [facility] LVIDd 3.9(A) 4.2 - 5.9 cm [facility] CV CPACS LVIDd Index 1.71 cm/m2 [facility] CV [facility]ACS LVIDs 2.8 cm [facility] CV [facility]ACS LVIDs Index 1.23 cm/m2 [facility] CV CPACS IVSd 0.9 0.6 - 1.0 cm [facility]ACS LVPWd 0.9 0.6 - 1.0 cm [facility] LV RWT Ratio 0.46 [facility] LV Mass 2D 105.3 88 - 224 g [facility] CV CPACS LV Mass 2D Index 46.2(A) 49 - 115 g/m2 [facility] CV CPACS LA Volume A-L A4C 38 18 - 58 mL [facility] CV CPACS LA Volume Index A-L A2C 17 16 - 34 mL/m2 [facility] CV CPACS LA Volume A-L A4C 34 18 - 58 mL [facility] CV CPACS LA Volume Index A-L A4C 15(A) 16 - 34 mL/m2 [facility] CV CPACS TAPSE 2.5 >=1.7 cm [facility] CV CPACS Est. RA Pressure 3 mmHg [facility] CV CPACS Aortic Root 1.7 cm [facility] CV CPACS Ao Root Index 0.75 cm/m2 [facility] CV CPACS Aortic Sinus Valsalva 2.7 cm BS CV CPACS Aortic Sinus Valsalva Index 1.18 cm/m2 BS CV CPACS Ascending Aorta 3.5 cm BS CV CPACS Ascending Aorta Index 1.54 cm/m2 [facility] CV [facility]ACS AV Mean Gradient 5 mmHg [facility] CV CPACS Sinotubular Junction 2.1 cm [facility] CV CPACS TV Max Velocity 2.0 m/s BS CV CPACS EF Physician 60 % BS CV CPACS Anatomical Region Laterality Modality Echocardiography Narrative 12/21/2024 3:41 PM EDT Left Ventricle: Normal left ventricular systolic function with a visually estimated EF of 55 - 60%. Normal wall thickness. Normal wall motion. Grade I diastolic dysfunction with normal left atrial pressure. Aortic Valve: Thickened cusps. Calcified cusps. Sclerosis of the aortic valve cusps. Mitral Valve: Mild regurgitation. Tricuspid Valve: Trace regurgitation. RVSP 19mmHg Image quality is adequate. No previous studies were available for comparison. Left Ventricle Normal left ventricular systolic function with a visually estimated EF of 55 - 60%. Normal wall thickness. Normal wall motion. Grade I diastolic dysfunction with normal LAP. Right Ventricle Right ventricle size is normal. Normal systolic function. Left Atrium Left atrium size is normal. Right Atrium Right atrium size is normal. IVC/SVC IVC diameter is normal or and decreases greater than 50% during inspiration; therefore the estimated right atrial pressure is normal (~3 mmHg). IVC size is normal. Mitral Valve Valve structure is normal. Mild regurgitation. No stenosis noted. Tricuspid Valve Valve structure is normal. Trace regurgitation. RVSP 19mmHg No stenosis noted. Aortic Valve Thickened cusps. Calcified cusps. Sclerosis of the aortic valve cusps. No regurgitation. No stenosis. Pulmonic Valve The pulmonic valve visualization is suboptimal but appears to be functioning normally. Physiologically normal regurgitation. No stenosis noted. Ascending Aorta Normal sized aortic root. Mildly dilated ascending aorta. Ao ascending diameter is 3.5 cm. Aortic Root is 1.7 cm. Aortic Sinus Valsalva is 2.7 cm. Ascending Aorta is 3.5 cm. Pericardium No pericardial effusion. Study Details Image quality: adequate. No contrast was given. us Anshul Magdaleno BODY DESIGNER - FACILITIES MAINTENANCE ASSISTANT CV ECHO ORDERABLES Final Result * (ABNORMAL) Basic Metabolic Panel (02/12/2023 7:23 AM EDT) Glucose 139(H) 70 - 99 mg/dL 02/12/2023 7:23 AM [facility] BUN 14 6 - 20 mg/dL 02/12/2023 7:23 AM [facility] Creatinine 0.8 0.7 - 1.2 mg/dL 02/12/2023 7:23 AM [facility] Est, Glom Filt Rate >60 >60 mL/min/1.7 3m2 02/12/2023 7:23 AM [facility] Comment: These results are not intended for use in patients <18 years of age. eGFR results are calculated without a race factor using the 2020 CKD-EPI equation. Careful clinical correlation is recommended, particularly when comparing to results calculated using previous equations. The CKD-EPI equation is less accurate in patients with extremes of muscle mass, extra-renal metabolism of creatine, excessive creatine ingestion, or following therapy that affects renal tubular secretion. BUN/Creatinine Ratio 18 9 - 20 02/12/2023 7:23 AM [facility] Calcium 9.3 8.6 - 10.4 mg/dL 02/12/2023 7:23 AM [facility] Sodium 139 135 - 144 mmol/L 02/12/2023 7:23 AM EDT [facility] Potassium 4.0 3.7 - 5.3 mmol/L 02/12/2023 7:23 AM EDT [facility] Chloride 101 98 - 107 mmol/L 02/12/2023 7:23 AM EDT [facility] CO2 27 20 - 31 mmol/L 02/12/2023 7:23 AM EDT [facility] Anion Gap 11 9 - 17 mmol/L 02/12/2023 7:23 AM EDT [facility] 02/12/2023 7:23 AM EDT 02/12/2023 7:24 AM EDT us Mayank Barba MD CHEMISTRY ORDERABLES Final Result Performing Organization Address [facility]/ZIP Co de Phone Number [facility] [address] [phone] * (ABNORMAL) Hemoglobin A1c (12/17/2019 1:30 AM EDT) Hemoglobin A1C 9.1(H) 4.8 - 5.9 % 12/17/2019 1:30 AM EDT [facility] Estimated Avg Glucose 214 mg/dL 12/17/2019 1:30 AM EDT [facility] Comment: The ADA and AACC recommend providing the estimated average glucose result to permit better patient understanding of their HBA1c result. 12/17/2019 1:30 AM EDT 12/17/2019 10:01 AM EDT us Won Dill MD CHEMISTRY ORDERABLES Gina l Result [facility] [address] [phone] from Last 3 Months or Most Recently Relevant to Health Maintenance Insurance Advance Directives * Full Code (Latest Code Status on File) Date Activated Date Inactivated Comments 12/17/2019 6:45 AM 12/18/2019 4:04 PM Care Teams Field Examiner Relationship Specialty Start Date End Date Warner Kraus MD PCP - General 10/20/14
--- OUTSIDE RECORDS SUMMARY | 2025-01-23 12:25 | XMS_ITS | Encounter Summary ---
Author Organization [facility] Address [address], [address] [place] [address] Care Team Providers Care Control Systems Designer Name Role Phone Warner Kraus MD Primary Care Provider [phone] Encounter Details Date Type Department Care Team (Late st Contact Info) Description 04/24/2014 Post-op Telephone [facility] General Surgery [address] [place] [id number] Mayra Davison RN Social History Tobacco Use Types Packs/Day Years Used Date Smoking Tobacco: Former Cigarettes 0.8 12 Alcohol Use Standard Drinks/Week Comments No 0 (1 standard drink = 0.6 oz pur e alcohol) Sex and Gender Information Value Date Recorded Sex Assigned at Not on file Legal Sex Male 2:06 PM EST Gender Identity Not on file Sexual Orientation Not on file documented as of this encounter Plan of Treatment Upcoming Encounters Date Type Department Care Team (Late st Contact Info) Description 01/24/2025 8:30 AM EDT Office Visit [facility] Pricing Director [address] [place] [id number] Jeffery Martinez DO [address] [place] [address] New patient --Abnormal stress--Referred by Dr. Kraus --No prior sample washer--LM regarding appt & labs 03/14/2025 9:00 AM EDT Office Visit [facility] Part of [address] [address] Christian More MD [address] [place], [place] [address], [place] [address] Referral from Efra with CP documented as of this encounter Visit Diagnoses Not on filedocumented in this encounter Care Teams Control Systems Designer Relationship Specialty Start Date End Date Warner Kraus MD PCP - General 10/20/14 documented as of this encounter
--- OUTSIDE RECORDS SUMMARY | 2025-01-23 12:25 | XMS_ITS | Patient Health Record ---
Author Organization [facility] Address [address] [place] [address] Care Team Providers Care Relief Charge Nurse Name Role Phone Mayank Barba [facility] [phone] Allergies Allergen (clinical drug ingredient) Drug/Non Drug Allergy documented on EMR Reaction Allergy Type Onset Date Status CIPROFLOXACIN HCL (uncoded) Unknown Allergy Active ciprofloxacin CIPROFLOXACIN Unknown Drug Allergy Active Reason For Referral No Information Medications Medication SIG (Take, Route, Frequency, Duration) Notes Start Date End Date Status metFORMIN Active Prilosec 20 mg take 1 capsule by oral route every day 30 minutes to 1 hour before a meal ORAL PRILOSEC Active Pravastatin Sodium 20 mg take 2 tablet by oral route every day ORAL PRAVASTATIN SODIUM Not-Taking Jardiance Active Social History Tobacco Use: Social History Observation Description Date Details (start date - stop date) Current Smoker NA - NA Smoking History Question Answer Notes Smoking Status Current Smoker Problems Problem Type SNOMED Code ICD Code Onset Dates Problem Status W/U Status Risk Notes Problem 49283504 Right elbow pain (M25.521) Active confirmed Problem 741330883 Rupture of right distal biceps tendon, initial encounter (S46.211A) Active confirmed Plan Of Treatment No Information Insurance Providers Payer Name Payer Address Payer Phone Subscriber Number Group Number Insured Name Patient Relationship to Insured Coverage Start Date Coverage End Date [facility] [id number] [place] [phone] [id number] VAISHALI VEE Self - patient is the insured Medical (General) History Medical History History ICD Code Diabetes: Yes GI Problems: Yes Sleep apnea: Yes CPAP Machine: Yes Do you use the CPAP machine? Yes Drug Allergies: Yes Surgical History Surgery Date(Month/Year) Right distal bicep tendon repair 02/2023 Abdominal exploratory - appendix 04/2005 Left bicep repair 03/2014
[2025-01-23 12:42] LABS: Hematocrit 53.1 % (42.0-54.0); Hemoglobin 18.7 g/dL (14.0-18.0); Immature Granulocytes Abs Auto 0.02 10^3/uL (0.00-0.03); Immature Granulocytes Pct Auto 0.2 % (0.0-0.5); Lymphocytes Absolute Auto 3.0 10^3/uL (1.2-3.8); Mean Corpuscular HGB Conc 35.2 g/dL (29.9-35.2); Mean Corpuscular Hemoglobin 29.9 pg (25.9-34.0); Mean Corpuscular Volume 85.0 fL (80.0-94.0); Platelet Count 266 10^3/uL (150-450); Red Blood Count 6.25 10^6/uL (4.70-6.10); White Blood Count 9.9 10^3/uL (4.0-11.0)
[2025-01-23 13:04] LABS: Alanine Aminotransferase 33 U/L (16-63); Albumin Globulin Ratio 1.3; Albumin Level 4.6 g/dL (3.4-5.0); Alkaline Phosphatase 81 U/L (46-116); Anion Gap 19.0; Aspartate Amino Transferase 23 U/L (15-37); Blood Urea Nitrogen 17.0 mg/dL (7.0-18.0); Calcium 9.6 mg/dL (8.5-10.1); Carbon Dioxide 22.9 mmol/L (21.0-32.0); Chloride 100 mmol/L (98-107); Estimated GFR (African America >60 (>=60 mL/min/1.73m^2); Estimated GFR (Non-African Ame >60 (>=60 mL/min/1.73m^2); Globulin 3.5 g/dL; Glucose 174 mg/dL (74-106); Potassium 3.9 mmol/L (3.5-5.1); Sodium 138 mmol/L (136-145); Total Protein 8.1 g/dL (6.4-8.2)
[2025-01-23 13:11] LABS: Magnesium 1.8 mg/dL (1.8-2.4)
--- NOTE | 2025-01-23 13:42 | ECG_ITS ---
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 Measurements Intervals Anthony Rate: 116 P: 63 MS: 116 QRS: 61 QRSD: 68 T: 270 QT: 300 QTc: 369 Interpretive Statements 1120 Sinus tachycardia 2210 Short MS interval 4364 Twave abnormality, possible anterolateral ischemia 4664 Twave abnormality, possible inferior ischemia 9150 abnormal ECG No previous ECG available for comparison Electronically Signed On 01-23-2025 18:32:06 EDT by YARELI JACK M.D.
--- NOTE | 2025-01-23 13:42 | CT_ITS ---
The [address] [address] Patient Name: VAISHALI VEE MRN: [id number] date: 1980 Sex: M Assigned Patient Location: ER Current Patient Location: Accession/Order Number: [id number] Exam Date: 01/23/2025 14:38 Report Date: 01/23/2025 14:40 At the request of: CAITY CUEVA MD Procedure: CT angio chest CTA chest CLINICAL DATA: Chest pain/shortness of breath since 11:30. TECHNIQUE: Intravenous contrast-enhanced CT angiography of the chest was performed. Axial, sagittal, coronal, and 3D-dimensional reconstructions were created and reviewed. These CT exams were performed using one or more of the following dose reduction techniques: Automated exposure control, adjustment of the mA and/or kV according to patient size, or use of iterative reconstruction technique. COMPARISON: None. FINDINGS: Chest: Mediastinum:Thoracic aorta appears normal in caliber without aneurysm dissection or rupture. Pulmonary trunk appears nondilated. No pleural effusion or lymphadenopathy. The esophagus is grossly unremarkable. Lungs:No consolidation pneumothorax pleural effusion or free air. Abd: Splenic granulomas. No acute process.[ Soft tissues/Bones: No acute findings. Osseous structures demonstrate degenerative change. CT/CT angio chest IMPRESSION: No acute findings. No acute aortic pathology. Impression dictated by: Hamzah Ivan Jr., D.O. 01/23/2025 2:40 PM Dictation Location: [place] [address] Electronically authenticated by: [id number] Y Date: 01/23/2025 14:40
[2025-01-23] MEDS: NITROGLYCERIN 0.4 MG BOTTLE SL (13:50)
[2025-01-23] MEDS: ASPIRIN 81 MG TAB.CHEW 324 MG PO (16:03)
[2025-01-23 16:28] LABS: Partial Thromboplastin Time 26.5 sec (22.3-36.2)
[2025-01-23 16:29] LABS: INR 1.03; Prothrombin Time 10.9 sec (9.0-11.6)
[2025-01-23] MEDS: HEPARIN SODIUM (PORCINE) 5,000 UNIT/ML VIAL 4000 UNIT IV (16:36)
[2025-01-23] MEDS: HEPARIN SODIUM,PORCINE/D5W 25,000 UNIT/500 ML IV.SOLN 20 UNIT IV (16:36)
--- NOTE | 2025-01-23 17:22 | ED_ITS ---
HPI HPI - General Adult General Chief complaint: Arrhythmia/Palpitations Stated complaint: FAST HEART RATE, DIZZINESS Time Seen by Provider: 01/23/25 12:15 Source: patient Mode of arrival: walk-in Limitations: no limitations History of Present Illness HPI narrative: 44-year-old male to the emergency department chief complaint of chest pain. Patient reports over the last few weeks he has been having intermittent pressure-like chest pain. It radiates up into his neck and into his arm. He has been seen for this. He reports he had a nuclear stress test performed recently that had a abnormal result. He was referred to cardiology. He has been awaiting cardiology follow-up. Today he was having increasing episodes of pressure rating up into his neck. Was associate with some mild shortness of breath. Cardiac risk factors: Obesity, hypertension, diabetes Related Data Home Medications �Medication �Instructions �Recorded �Confirmed empagliflozin 25 mg tablet 25 mg PO DAILY 01/23/25 (Jardiance) lisinopril 10 mg tablet 10 mg PO DAILY 01/23/2501/04 Allergies Allergy/AdvReac Type Severity Reaction Status Date / Time ciprofloxacin (From Cipro) Allergy Severe Rash Verified 01/23/25 12:14 Opioid HPI Opioid Management Most Recent Opioid Data: Last Pain Scale 8 Today, 13:40 Last ED Pain Assessment Today, 13:40 Review of Systems ROS Status of ROS 10 or more systems reviewed and unremark able except as noted in history and below PFSH PFSH Social History Little interest or pleasure in doing things: not at all Feeling down, depressed, or hopeless: not at all Exam Narrative Exam Narrative: VITALS: I have reviewed the triage vital signs. GENERAL: Well developed, well appearing adult in no acute distress. NEURO: Alert and oriented. Moves all extremities. Face is symmetric and expressive. EYES: PERRL. No scleral icterus or conjunctival injection. No discharge. HENT: Normocephalic, atraumatic. Hearing is grossly intact. Nares grossly patent and without discharge. Mucous membranes moist. NECK: No JVD. Patient moves neck without restriction. CARDIO: Rhythm regular. Normal rate. No murmur, rub, or gallop. Pulses equal bilaterally in the upper and lower extremity. No lower extremity edema. PULM: Lungs clear to auscultation in all tiwari. No wheezes, rales, or rhonchi. No conversational dyspnea. No splinting, stridor, or accessory muscle use. GI/: Abdomen is soft and non-tender. Normoactive bowel sounds. EXTREMITIES: Symmetric muscle bulk. No joint swelling. No clubbing, cyanosis, or deformity. SKIN: Warm and dry. Normal turgor. No rash or lesions appreciated. PSYCH: Mood, affect, and interaction is appropriate to the setting. Constitutional Vital Signs, click to edit/add: Last Vital Signs Temp 98.7 F 01/23/25 12:24 Pulse 99 H 01/23/25 17:10 Resp 10 L 01/23/25 17:10 BP 144/96 H 01/23/25 17:00 Pulse Ox 96 01/23/25 17:10 O2 Del Method Room Air 01/23/25 12:14 Course Vital Signs Vital signs: Vital Signs Pulse Rate 120 H 01/23/25 12:11 Respiratory Rate 17 01/23/25 12:11 Pulse Oximetry 98 01/23/25 12:11 Temperature 98.7 F 01/23/25 12:24 Pulse Rate 99 H 01/23/25 17:10 Respiratory Rate 10 L 01/23/25 17:10 Blood Pressure 144/96 H 01/23/25 17:00 Pulse Oximetry 96 01/23/25 17:10 Oxygen Delivery Method Room Air 01/23/25 12:14 Medical Decision Making MDM Narrative Medical decision making narrative: 44-year-old male to the emergency department chief complaint of worsening course of chest pain. Vital stable, the patient is afebrile. Recent abnormal stress test. Cardiac workup is initiated. His chest x-ray was clear. Given his worsening pain associate with shortness of breath a CTA of the chest was ordered to rule out pulmonary embolism. Aspirin and nitro ordered. Lab work reviewed and noted. No major abnormalities. His troponin is low x 2. EKG with nonspecific changes. His pain did resolve with nitro. His heart score is moderate risk. Given his abnormal outpatient stress test and concerning history Case was discussed via telephone with the on-call talent acquisition specialist Dr. Villalobos. He recommended transfer to [facility] for consideration of cardiac catheterization. He asked that heparin drip be initiated. Case was discussed with Dr. Mckoy who accepted the patient to her service. Medical Records Medical records reviewed: Yes I reviewed the patient's medical records Lab Data Lab results reviewed: Yes I reviewed the patient's lab results Labs: Lab Results 01/23/25 01/23/25 Range/Units 12:21 14:29 WBC 9.9 (4.0-11.0) 10^3/uL RBC 6.25 H (4.70-6.10) 10^6/uL Hgb 18.7 H (14.0-18.0) g/dL Hct 53.1 (42.0-54.0) % MCV 85.0 (80.0-94.0) fL MCH 29.9 (25.9-34.0) pg MCHC 35.2 (29.9-35.2) g/dL RDW 12.5 (11.0-15.0) % Plt Count 266 (150-450) 10^3/uL MPV 10.7 (9.5-13.5) fL Neut % (Auto) 61.3 (43.0-75.0) % Lymph % (Auto) 30.1 (20.5-60.0) % Kidder % (Auto) 8.1 (1.7-12.0) % Eos % (Auto) 0.2 L (0.9-7.0) % Baso % (Auto) 0.1 L (0.2-2.0) % Neut # (Auto) 6.1 (1.4-6.5) 10^3/uL Lymph # (Auto) 3.0 (1.2-3.8) 10^3/uL Kidder # (Auto) 0.8 (0.3-0.8) 10^3/uL Eos # (Auto) 0.0 (0.0-0.7) 10^3/uL Baso # (Auto) 0.0 (0.0-0.1) 10^3/uL Abs Immat Gran (auto) 0.02 (0.00-0.03) 10^3/uL Imm/Tot Granulo (auto) 0.2 (0.0-0.5) % PT 10.9 (9.0-11.6) sec INR 1.03 APTT 26.5 (22.3-36.2) sec Sodium 138 (136-145) mmol/L Potassium 3.9 (3.5-5.1) mmol/L Chloride 100 (98-107) mmol/L Carbon Dioxide 22.9 (21.0-32.0) mmol/L Anion Gap 19.0 BUN 17.0 (7.0-18.0) mg/dL Creatinine 0.81 (0.70-1.30) mg/dL Est GFR ( Amer) >60 (>=60 mL/min/1.73m^2) Est GFR (Non-Af Amer) >60 (>=60 mL/min/1.73m^2) BUN/Creatinine Ratio 21.0 Glucose 174 H (74-106) mg/dL Calcium 9.6 (8.5-10.1) mg/dL Magnesium 1.8 (1.8-2.4) mg/dL Total Bilirubin 0.5 (0.2-1.0) mg/dL AST 23 (15-37) U/L ALT 33 (16-63) U/L Alkaline Phosphatase 81 (46-116) U/L Troponin I High Sens <4.0 L <4.0 L (4.0-76.1) pg/mL Total Protein 8.1 (6.4-8.2) g/dL Albumin 4.6 (3.4-5.0) g/dL Globulin 3.5 g/dL Albumin/Globulin Ratio 1.[address] scan - chest: Attestation: I have reviewed the pertinent imaging results. Radiologist's impression: ITS Impressions Chest X-Ray 01/23/25 12:19 IMPRESSION: NEGATIVE CHEST. Impression dictated by: Hamzah Ivan Jr., D.O. 01/23/2025 12:41 PM Dictation Location: [employer] Electronically authenticated by: [id number] Y Date: 01/23/2025 12:41 Chest CTA 01/23/25 13:42 IMPRESSION: No acute findings. No acute aortic pathology. Impression dictated by: Hamzah Ivan Jr., D.O. 01/23/2025 2:40 PM Dictation Location: [employer] Electronically authenticated by: [id number] Y Date: 01/23/2025 14:40 ECG Data Attestation: I personally reviewed and interpreted this ECG as follows: (Normal sinus rhythm. Nonspecific ST changes. Normal QTc.) Critical Care Time Critical Care Time Critical Care Time: Yes Total Critical Care Time: 32 Attestation: Critical Care Procedure Note Authorized and Performed by: Kushal Miller DO Total critical care time: 32 min Due to a high probability of clinically significant, life threatening deterioration, the patient required my highest level of preparedness to intervene emergently and I personally spent this critical care time directly and personally managing the patient. This critical care time included obtaining a history; examining the patient; pulse oximetry; ordering and review of studies; arranging urgent treatment with development of a management plan; evaluation of patient's response to treatment; frequent reassessment; and, discussions with other providers. This critical care time was performed to assess and manage the high probability of imminent, life-threatening deterioration that could result in multi-organ failure. It was exclusive of separately billable procedures and treating other patients and teaching time. Please see MDM section and the rest of the note for further information on patient assessment and treatment. Discharge Plan Discharge Chief Complaint: Arrhythmia/Palpitations Clinical Impression: Angina pectoris, unstable Patient Disposition: [facility] Time of Disposition Decision: 17:24 Discharge Location: [facility] Condition: Good Mode of Transportation: Private Vehicle
== END 2025-01-23 19:39 | disposition short-term general hospital (02) ==
PROVIDERS: Emergency Provider Student in an Organized Health Care Education/Training Program; PCP Family Medicine
DX: I20.0 Unstable angina (principal); I10 Essential (primary) hypertension; E11.9 Type 2 diabetes mellitus without complications; E66.9 Obesity, unspecified; Z79.84 Long term (current) use of oral hypoglycemic drugs
CPT/HCPCS: 36415; 71045; 71275; 80053; 83735; 84484; 85025; 85610; 85730; 93005; 96365; 96366; 96376; 99285; J1644; Q9967